=== PATIENT | female | born 1980 | race Two or more races ===

== ENCOUNTER 2023-05-14 15:01 | Emergency (ER) | payer BC, OTHER ==
[~2023-05-14] VITALS: Ht 172.7 cm; Wt 87.7 kg
[2023-05-14 16:43] LABS: Basophils # (auto) 0.1 10 ^3/uL (0-0.2); Basophils % (auto) 0.8 % (0.0-2.0); Eosinophils # (auto) 0 10 ^3/uL (0-0.8); Eosinophils % (auto) 0.7 % (0.0-7.0); Hematocrit 49.6 % (36.0-46.0); Hemoglobin 16.5 g/dL (12.2-16.2); Lymphocytes # (auto) 1.8 10 ^3/uL (0.4-5.4); Lymphocytes % (auto) 27.3 % (10.0-50.0); Mean Corpuscular Hemoglobin 30.5 pg (28.0-32.0); Mean Corpuscular Hgb Conc. 33.3 g/dL (32.0-36.0); Mean Corpuscular Volume 91.4 fL (80.0-100.0); Monocytes % (auto) 14.7 % (0.0-12.0); Neutrophils # (auto) 3.8 10 ^3/uL (1.6-8.6); Neutrophils % (auto) 56.5 % (37.0-80.0); Nucleated Red Blood Cells % 0.2 %; Red Blood Cells 5.42 10^6/uL (4.0-5.20); Red Cell Distribution Width 13.4 % (11.8-14.3); White Blood Cell 6.6 10^3/uL (4.4-10.8)
[2023-05-14 16:51] LABS: Urine Bacteria NONE SEEN /hpf (None Seen); Urine Blood Negative /uL (Negative); Urine Clarity Clear (Clear); Urine Color Yellow (Yellow); Urine Mucus FEW (None Seen); Urine Protein, UAD 1+ (Negative); Urine Specific Gravity 1.035 (1.001-1.035); Urine Urobilinogen Normal (Negative); Urine WBC <1 /hpf (0 - 5)
[2023-05-14 17:13] LABS: Alanine Aminotransferase 33 U/L (7-40); Albumin 4.8 g/dL (3.2-4.8); Alkaline Phosphatase 76 U/L (46-116); Anion Gap 9 (5-15); Aspartate Aminotransferase 34 U/L (13-40); BUN/Creatinine Ratio 22.1 (10.0-20.0); Bilirubin, Total 0.6 mg/dL (0.2-1.0); Blood Urea Nitrogen 17 mg/dL (9-23); Calcium 8.9 mg/dL (8.7-10.4); Carbon Dioxide 24 mmol/L (20-30); Chloride 106 mmol/L (98-107); Glucose 98 mg/dL (74-106); Lipase 48 U/L (12-53); Potassium 3.3 mmol/L (3.5-5.1); Sodium 139 mmol/L (136-145); Total Protein 7.5 g/dL (5.7-8.2)
[2023-05-14] MEDS: DICYCLOMINE HCL (10MG/ML) 2 ML AMPULE IM ONE (18:37)
[2023-05-14] MEDS: ONDANSETRON ODT 4 MG TAB PO ONE (18:37)
[2023-05-14] MEDS: MORPHINE SULFATE INJ 2 MG/ml SYRG IM ONE (18:43)
[2023-05-14] MEDS ORDERED: ZOFR4T PO (19:54)
[2023-05-14] MEDS ORDERED: POTA10TA51 PO (19:54)
[2023-05-14] MEDS ORDERED: DICY10CA PO (19:54)
[2023-05-14 20:49] VITALS: BP 120/86; PULSE 82; RESP 16; TEMP 99; O2SAT 99
[2023-05-14] MEDS: POTASSIUM EFFERVESENT TAB 25 MEQ PO ONE (20:50)
== END 2023-05-14 21:06 | disposition home or self-care (01) ==
LOC: ER 15:01
DX: K52.9 Noninfective gastroenteritis and colitis, unspecified (principal); R10.2 Pelvic and perineal pain; K20.90 Esophagitis, unspecified without bleeding; E87.6 Hypokalemia; Z98.890 Other specified postprocedural states; Z88.8 Allergy status to other drugs, medicaments and biological substances
CPT/HCPCS: 36415; 74176; 80053; 81001; 83690; 83735; 84702; 85025; 96372; 99285; J0500; J2270; Q0162